=== PATIENT | female | born 1995 | race Hispanic/Latino ===

== ENCOUNTER 2021-08-01 09:43 | Emergency (ER) | payer OTHER ==
[~2021-08-01] VITALS: Ht 160 cm; Wt 100.2 kg
[2021-08-01] MEDS ORDERED: KETOROLAC TROMETHAMINE 60 MG/2 ML VIAL IM ONE (11:30)
== END 2021-08-01 13:10 | disposition home or self-care (01) ==
LOC: ER 11:35
DX: R51.9 Headache, unspecified (principal)
CPT/HCPCS: 81025; 99282; J1885

== ENCOUNTER 2022-06-15 11:18 | Emergency (ER) | payer OTHER ==
[~2022-06-15] VITALS: Ht 160 cm; Wt 102.3 kg
[2022-06-15] MEDS ORDERED: SODIUM CHLORIDE 0.9% 1000ML 1,000 ML IV SCH (12:00)
[2022-06-15] MEDS ORDERED: ONDANSETRON HCL INJ 2MG/ML 2ML 2 MG/ML VIAL IV STA (12:00)
[2022-06-15] MEDS ORDERED: KETOROLAC TROMETHAMINE 30 MG/ML VIAL IV STA (12:00)
[2022-06-15] MEDS ORDERED: FAMOTIDINE 20 MG/2 ML VIAL IV STA (12:00)
[2022-06-15] MEDS ORDERED: IOPAMIDOL 370 MG/ML 100 ML INFUS..BTL INJ ONE (12:29)
[2022-06-15] MEDS ORDERED: METRONIDAZOLE500 MG PO (13:46)
[2022-06-15] MEDS ORDERED: ONDANSETRON ODT4 MG PO (13:46)
[2022-06-15] MEDS ORDERED: CIPRO500 MG PO (13:46)
[2022-06-15] MEDS ORDERED: NAPROSYN500 MG PO (13:46)
== END 2022-06-15 13:55 | disposition home or self-care (01) ==
LOC: FSED 11:24
DX: R10.32 Left lower quadrant pain (principal); R11.0 Nausea; K57.32 Diverticulitis of large intestine without perforation or abscess without bleeding
CPT/HCPCS: 74177; 80048; 80076; 81003; 81025; 85025; 96374; 96375; 99284; J1885; J2405; J7030; Q9967

== ENCOUNTER 2025-01-26 15:11 | Emergency (ER) | payer OTHER ==
[~2025-01-26] VITALS: Ht 160 cm; Wt 101.6 kg
[~2025-01-26 15:11] MED LIST: CEFDINIR300 MG PO; CIPRO500 MG PO; DOXYCYCLINE HY100 MG PO; FEROSUL325 MG PO; HYDROCODON-ACE1 EAC9 PO; IBUPROFEN200 MG PO; IBUPROFEN600 MG PO; METRONIDAZOLE500 MG PO; NAPROSYN500 MG PO; No Home Medications; ONDANSETRON ODT4 MG PO
[2025-01-26 15:28] VITALS: PULSE 104; RESP 18; TEMP 98.4
[2025-01-26] MEDS: ONDANSETRON HCL INJ 2MG/ML 2ML 2 MG/ML VIAL IV STA ×2 (16:16→18:37)
[2025-01-26] MEDS: FAMOTIDINE 20 MG/2 ML VIAL IV STA (16:17)
[2025-01-26] MEDS: KETOROLAC TROMETHAMINE 30 MG/ML VIAL IV STA (16:17)
[2025-01-26] MEDS: LACTATED RINGER'S 1,000 ML INJ ONE (16:17)
[2025-01-26] MEDS ORDERED: IOPAMIDOL 370 MG/ML 100 ML INFUS..BTL INJ ONE (18:01)
[2025-01-26] MEDS ORDERED: ONDANSETRON ODT4 MG PO (18:13)
[2025-01-26] MEDS ORDERED: PROCHLORPERAZINE EDISYLATE 5 MG/ML VIAL IV ONE (18:15)
[2025-01-26 18:47] VITALS: BP 140/95; RESP 18; O2SAT 98
== END 2025-01-26 18:45 | disposition home or self-care (01) ==
LOC: FSED 15:21
DX: R10.30 Lower abdominal pain, unspecified (principal); K52.9 Noninfective gastroenteritis and colitis, unspecified; R11.0 Nausea; E78.5 Hyperlipidemia, unspecified; Z87.19 Personal history of other diseases of the digestive system
CPT/HCPCS: 36415; 74177; 80048; 80076; 81003; 81025; 83690; 85025; 99283; J1885; J2405; Q9967

== ENCOUNTER 2025-06-02 13:03 | Emergency (ER) | payer OTHER ==
[~2025-06-02] VITALS: Ht 160 cm; Wt 101.7 kg
[2025-06-02 13:25] VITALS: PULSE 68; RESP 20; TEMP 97.9
[2025-06-02] MEDS ORDERED: IOPAMIDOL 370 MG/ML 100 ML INFUS..BTL INJ ONE (14:07)
[2025-06-02 17:33] VITALS: BP 138/79; PULSE 65; RESP 18; TEMP 98.9; O2SAT 99
== END 2025-06-02 17:25 | disposition home or self-care (01) ==
LOC: FSED 13:25
DX: R10.31 Right lower quadrant pain (principal); M54.50 Low back pain, unspecified; R30.0 Dysuria; E78.5 Hyperlipidemia, unspecified; Z87.19 Personal history of other diseases of the digestive system; Z98.0 Intestinal bypass and anastomosis status
CPT/HCPCS: 74177; 80048; 81003; 85025; 99283; Q9967